=== PATIENT | female | born 1980 | race African-American/Black ===

== ENCOUNTER 2016-11-16 16:45 | Emergency (ER) | payer BC ==
[2016-11-16 14:10] LABS: BASOPHILS 0.3 %; BASOPHILS ABSOLUTE 0.02 10/3/uL (0.0-0.16); EOSINOPHILS 1.5 %; ER CBC TAT 0 Hrs 08 Mins; HEMATOCRIT 37.4 % (36.0-48.0); HEMOGLOBIN 12.4 g/dL (12.0-16.0); LYMPHOCYTES ABSOLUTE 2.61 10/3/uL (0.67-4.30); MANUAL DIFF NO %; MEAN CORPUS HGB CONC 33.2 g/dL (32.0-36.0); MEAN CORPUSCULAR HEMOGLOB 29.9 pg (26.0-34.0); MEAN CORPUSCULAR VOLUME 90.1 fL (80-100); MEAN PLATELET VOLUME 10.4 fL (9.2-13.0); MONOCYTES 5.2 %; MONOCYTES ABSOLUTE 0.35 10/3/uL (0.21-1.20); NEUTROPHILS ABSOLUTE 3.61 10/3/uL (2.02-8.40); PLATELET COUNT 261 10/3/uL (150-400); RBC DISTRIBUTION WIDTH 12.3 % (12.0-16.0); RED CELL COUNT 4.15 10/6/uL (4.0-5.6); WHITE BLOOD CELLS 6.7 10/3/uL (4.5-10.5)
[2016-11-16 14:17] LABS: INTERNATIONAL NORMAL RATI 1.1 UNITS (-); PARTIAL THROMBO TIME 27.2 SEC (22.5-37.2); PROTIME (NOT ORD) 13.9 SEC (12.0-14.5)
[2016-11-16 14:24] LABS: BUN (BLOOD UREA NITROGEN) 7 MG/DL (6-23); CALCIUM, SERUM 9.3 MG/DL (8.5-10.4); CHEST PAIN PROFILE TAT 0 Hrs 22 Mins; CHLORIDE, SERUM 108 MMOL/L (96-112); CO2 (CARBON DIOXIDE) 29 MMOL/L (24-34); CREATININE 0.67 MG/DL (0.55-1.02); GFR AFRICAN AMERICAN 130 ML/MIN (>=60); GFR NON AFRICAN AMERICAN 112 ML/MIN (>=60); GLUCOSE, SERUM 100 MG/DL (60-99); POTASSIUM, SERUM 3.5 MMOL/L (3.5-5.3); TROPONIN I <0.02 NG/ML (<0.05)
[2016-11-16 14:25] LABS: SODIUM, SERUM 143 MMOL/L (135-148)
[~2016-11-16 16:45] MED LIST: ALTA2.5 PO; ASAB PO; CLOBETASOL0.053 TOP; FLAG500TAB PO; PLAQ200B PO; PROVHFA INH
== END 2016-11-16 17:00 | disposition home or self-care (01) ==
LOC: ER 16:45
PROVIDERS: Emergency Medicine
DX: R07.9 Chest pain, unspecified (principal); F17.200 Nicotine dependence, unspecified, uncomplicated; Z91.038 Other insect allergy status; Z79.82 Long term (current) use of aspirin
CPT/HCPCS: 71020; 80048; 83735; 84484; 85025; 85379; 85610; 85730; 93005; 99285